=== PATIENT | male | born 1945 | race Caucasian/White ===

== ENCOUNTER 2016-09-04 10:16 | Emergency (ER) | payer OTHER ==
[2016-09-04 11:22] LABS: HEMATOCRIT 55.3 % (42.0-54.0); HEMOGLOBIN 18.4 g/dL (13.5-17.5); MCH 31.3 pg (26.0-34.0); MCHC 33.3 g/dL (31.0-37.0); MCV 94.2 fL (80.0-100.0); MEAN PLATELET VOLUME 10.8 fL (7.4-10.4); PLATELET COUNT 249 10x3/uL (130-400); RBC 5.87 10x6/uL (4.20-6.10); RDW 13.7 % (11.5-14.5); WBC 20.9 10x3/uL (4.8-10.8)
[2016-09-04 11:34] LABS: INR 1.34 (0.85-1.17); PROTIME 16.5 SECONDS (11.6-15.0)
[2016-09-04 11:36] LABS: D-DIMER-QUANTITATIVE 1.81 ug/mLFEU (0.20-0.54)
[2016-09-04 11:42] LABS: LYMPHOCYTES 15 % (15-50); MONOCYTES 2 % (2-11); NEUTROPHILS 74 % (40-80)
[2016-09-04 11:43] LABS: PLATELET ESTIMATE NORMAL
[2016-09-04 12:18] LABS: ALBUMIN 3.5 g/dL (3.4-5.0); ALKALINE PHOSPHATASE 116 U/L (46-116); ALT (SGPT) 22 U/L (10-68); BILIRUBIN - TOTAL 0.64 mg/dL (0.2-1.3); CALC OSMOLALITY 277 mosm/kg (275-300); CALCIUM 8.9 mg/dL (8.5-10.1); CARBON DIOXIDE 29.6 mmol/L (21.0-32.0); CHLORIDE - SERUM 103 mmol/L (98-107); CREATININE - SERUM 1.1 mg/dL (0.6-1.3); GLUCOSE 121 mg/dL (74-106); POTASSIUM - SERUM 4.7 mmol/L (3.5-5.1); PROTEIN - SERUM 8.1 g/dL (6.4-8.2); SODIUM 137 mmol/L (136-145); UREA NITROGEN 20 mg/dL (7-18); eGFR NON AFRICAN AMERICAN 70 mL/min (90-120)
[2016-09-04 12:26] LABS: CREATINE KINASE 37 UL (21-232); MAGNESIUM - SERUM 1.9 mg/dL (1.8-2.4); PRO BNP 259 pg/mL (0-125); TROPONIN-I < 0.017 ng/mL (0.000-0.060)
[2016-09-04 12:53] LABS: APPEARANCE CLEAR (CLEAR); BILIRUBIN NEGATIVE (NEGATIVE); COLOR DK YELLOW (YELLOW); GLUCOSE NEGATIVE (NEGATIVE); KETONE NEGATIVE (NEGATIVE); LEUKOCYTE ESTERASE TRACE (NEGATIVE); NITRITE NEGATIVE (NEGATIVE); PROTEIN NEGATIVE (NEGATIVE); UROBILINOGEN NORMAL (NORMAL)
[2016-09-04 12:54] LABS: BACTERIA MODERATE /hpf (NONE SEEN); EPITHELIAL CELLS 0-5 /hpf (0-5); HYALINE CAST 0-5 /lpf (NONE SEEN); MUCUS >1+ /lpf (NONE SEEN); RED CELLS - URINE 0-5 /hpf (0-5); WHITE CELLS - URINE 0-5 /hpf (0-5)
== END 2016-09-04 13:56 | disposition other institution (70) ==
LOC: D.ER 10:16
PROVIDERS: Nurse Practitioner Family
DX: D86.9 Sarcoidosis, unspecified (principal); J18.9 Pneumonia, unspecified organism; I10 Essential (primary) hypertension